=== PATIENT | female | born 1985 | race Caucasian/White ===

== ENCOUNTER 2018-11-19 15:52 | Emergency (ER) | payer OTHER, BC ==
--- NOTE | 2018-11-19 18:03 | UC ---
Lower Extremity/Ankle HPI - HPI Summary HPI Summary: 33-year-old female presents with complaints of left ankle pain. States the New Year's Lena she was exiting a car while wearing high heeled boots, misstepped causing an inversion injury to her left ankle. Notes pain, swelling and bruising to the lateral aspect of her left ankle and foot. She's was able to bear weight immediately after the injury and in the clinic. Denies numbness or tingling. - History of Current Complaint Chief Complaint: UCLowerExtremity Stated Complaint: ANKLE INJURY Time Seen by Provider: 11/19/18 17:45 Hx Obtained From: Patient Hx Last Menstrual Period: Now Pain Intensity: 1 - Allergies/Home Medications Allergies/Adverse Reactions: Allergies Allergy/AdvReac Type Severity Reaction Status Date / Time AGAVA Allergy Vomiting Uncoded 11/19/18 16:32 CILANTRO Allergy TASTE Uncoded 11/19/18 16:32 Home Medications: Home Medications LevoCETirizine TAB (NF) [Xyzal TAB (NF)] 5 mg PO DAILY 11/19/18 [History Confirmed 11/19/18] Progesterone, Micronized [Progesterone] 200 mg PO DAILY 11/19/18 [History Confirmed 11/19/18] PMH/Surg Hx/FS Hx/Imm Hx Previously Healthy: Yes - Denies significant PMH - Surgical History Surgical History: Yes Surgery Procedure, Year, and Place: 2013 - [facility] ARTHROSCOPIC DEBREDMENT TO SHOULDERS - Family History Known Family History: Positive: Non-Contributory - Social History Occupation: Employed Full-time Lives: With Family Alcohol Use: Occasionally Substance Use Type: None Smoking Status (MU): Never Smoked Tobacco Review of Systems All Other Systems Reviewed And Are Negative: Yes Constitutional: Positive: Negative Skin: Positive: Bruising Respiratory: Positive: Negative Cardiovascular: Positive: Negative Gastrointestinal: Positive: Negative Genitourinary: Positive: Negative Motor: Negative: Weakness Neurovascular: Negative: Decreased Sensation Musculoskeletal: Positive: Arthralgia - See HPI, Decreased ROM Neurological: Positive: Negative Is Patient Immunocompromised?: No Physical Exam - Summary Physical Exam Summary: GENERAL APPEARANCE: Well developed, well nourished, alert and cooperative, and appears to be in no acute distress. HEAD: Atraumatic. normocephalic. NECK: Neck supple, non-tender. CARDIAC: Normal S1 and S2. No S3, S4 or murmurs. Rhythm is regular. There is no peripheral edema, cyanosis or pallor. Extremities are warm and well perfused. Capillary refill is less than 2 seconds. Peripheral pulses intact. LUNGS: Clear to auscultation and percussion without rales, rhonchi, wheezing or diminished breath sounds. ABDOMEN: Positive bowel sounds. Soft, nondistended, nontender. No guarding or rebound. No masses or hepatosplenomegally. MUSKULOSKELETAL: ROM mildly reduced to left ankle due to pain. Tenderness with palpation over the lateral malleolus. No gross deformity. Mild swelling and ecchymosis of the lateral ankle and foot. Normal muscular development. Limping gait. BACK: Examination of the spine reveals normal posture, no spinal deformity or tenderness, decreased range of motion or muscular spasm. NEUROLOGICAL: Strength and sensation intact. SKIN: Skin normal color, texture and turgor with no lesions or eruptions. Triage Information Reviewed: Yes Vital Signs: Initial Vital Signs Temp 98.5 F 11/19/18 16:27 Pulse 69 11/19/18 16:27 Resp 18 11/19/18 16:27 BP 123/85 11/19/18 16:27 Pulse Ox 99 11/19/18 16:27 Vital Signs Reviewed: Yes Diagnostics - Radiology No standard instances Radiology Interpretation Completed By: Radiologist Summary of Radiographic Findings: Patient Name: ARMEN PATINO Medical Record#: [id number]. Ordering Physician: Jm Jacobs NP Acct.#: [id number]. : 1985 Age: 33 Sex: F Location: [facility]. Exam Date: 01/06 ADM Status: REG ER. Order Information: ANKLE LEFT 3+VWS. Accession Number: [id number]. CPT: 64631. Indication: Left ankle pain. 3 views of the left ankle demonstrates ankle mortise intact. Soft tissue swelling is noted. laterally. No fracture is identified. IMPRESSION: Soft tissue swelling without evidence of fracture. Lower Extremity Course/Dx - Course Course Of Treatment: 33-year-old female presents with complaints of left ankle pain. States the New Year's Lena she was exiting a car while wearing high heeled boots, misstepped causing an inversion injury to her left ankle. Notes pain, swelling and bruising to the lateral aspect of her left ankle and foot. She's was able to bear weight immediately after the injury and in the clinic. Denies numbness or tingling. Exam revealed a little female in no acute distress. She had tenderness over the lateral malleolus with some mild swelling and ecchymosis to the lateral ankle and foot. Mildly limited range of motion due to pain. Sensation intact. X-ray showed no acute fracture. We'll treat her for a left ankle sprain. She was placed in a prefabricated gel stirrup splint by the RN. Post-application her circulation and sensation were unchanged from previous. Recommend treatment with NSAIDs and RICE. She is to follow-up with the orthopedic surgeon in 7 days if symptoms do not improve. Warning symptoms were reviewed with the patient. She verbalizes understanding and agrees with plan of care. - Differential Dx/Diagnosis Differential Diagnosis/HQI/PQRI: Contusion, Dislocation, Fracture (Closed), Sprain, Strain Provider Diagnosis: Left ankle sprain Discharge - Sign-Out/Discharge Documenting (check all that apply): Patient Departure All imaging exams completed and their final reports reviewed: Yes - Discharge Plan Condition: Stable Disposition: HOME Patient Education Materials: Ankle Sprain (ED) Referrals: Nae Mckenzie NP [Primary Care Provider] - Lee Diana MD [Medical Doctor] - 7 Days (If symptoms do not improve.) Additional Instructions: The x-ray performed in the clinic today showed no evidence of a fracture. You pain is likely from a sprain of the ankle. Take naproxen (Aleve) 1-2 tabs every 12 hours with food for next 7 days then may take as needed for pain. Rest the ankle as much as possible. You may walk and bear weight but should avoid strenuous activities until you are pain-free. Wear the stirrup splint until you are pain-free for support. Apply ice for 15-20 minutes at least 4 times a day for next few days. Keep the foot elevated when sitting to reduce swelling. Follow up with Dr. Diana, orthopedic surgery, in 7 days if symptoms do not improve. Call for appointment. Seek immediate medical attention in the emergency room if you have pain that is not managed with pain medication, increased swelling, you are unable to bear weight, the foot or toes become pale or blue in color, you develop numbness or tingling in the foot or toes, or have any worsening of symptoms. - Billing Disposition and Condition Condition: STABLE Disposition: Home
[2018-11-19 18:27] VITALS: BP 118/80
== END 2018-11-19 18:27 | disposition home or self-care (01) ==
LOC: UCEAST 15:52
DX: S93.402A Sprain of unspecified ligament of left ankle, initial encounter (principal); Z91.018 Allergy to other foods; Z91.048 Other nonmedicinal substance allergy status; X50.1XXA Overexertion from prolonged static or awkward postures, initial encounter; Y93.9 Activity, unspecified; Y92.9 Unspecified place or not applicable
CPT/HCPCS: 99212; G0463